=== PATIENT | male | born 1965 | race Caucasian/White ===

== ENCOUNTER 2017-11-21 18:00 | Emergency (ER) | payer OTHER ==
[~2017-11-21] VITALS: Ht 160 cm; Wt 66.2 kg
[2017-11-21 22:50] VITALS: BP 119/86
== END 2017-11-21 22:50 | disposition home or self-care (01) ==
LOC: ED 18:00
DX: R10.9 Unspecified abdominal pain (principal)
CPT/HCPCS: Q0092

== ENCOUNTER 2018-04-02 14:01 | Emergency (ER) | payer OTHER | END 2018-04-02 16:11 | disposition home or self-care (01) | LOC: ED 14:01 ==